=== PATIENT | male | born 1955 | race Caucasian/White ===

== ENCOUNTER 2022-10-06 06:46 | Outpatient (CLI) | payer MEDICARE, SELFPAY ==
--- NOTE | ~2022-10-06 | MR_ITS ---
EXAMINATION: MR pelvis wo/w con DATE: 10/06/2022 08:31 INDICATION: Malignant neoplasm of prostate. TECHNIQUE: Magnetic resonance imaging (MRI) of the pelvis was performed without and with 16 mL MultiH ance intravenous contrast. COMPARISON: None. FINDINGS: The prostate is moderately enlarged. There is diffuse bladder wall thickening, likely secondary to ch ronic outlet obstruction. There is diverticulosis of the colon without evidence of diverticulitis. Th ere are no pathologically enlarged lymph nodes. There is no free intraperitoneal fluid. IMPRESSION: 1. Moderately enlarged prostate. No evidence of metastatic disease. Reviewed, dictated and finalized at location A.
== END 2022-10-06 06:47 | disposition home or self-care (01) ==
PROVIDERS: PCP Nurse Practitioner; Visit Provider Radiology Radiation Oncology
DX: C61 Malignant neoplasm of prostate (principal)
CPT/HCPCS: 72197; A9577